=== PATIENT | female | born 1970 | race Caucasian/White ===

== ENCOUNTER 2018-08-04 20:03 | Emergency (ER) | payer MEDICAID ==
--- NOTE | 2018-08-04 20:36 | Emergency Department Report ---
Blank Doc - Documentation Documentation: C/O Cough and vomiting daily sweats and thrush. Hx/o HIV HTN, Hyst, This initial assessment diagnostic orders/clinical plan/treatment (s) is/Are subject change based on patient's health status, clinical progression and re- assessment by fellow clinical providers in the ED. Further treatment and work-up at subsequent clinical providers discretion. Patient/guardians urged not to elope from s their condition may be serious if not clinically assessed and managed. Inital order include:
[2018-08-04 21:13] LABS: Hematocrit 36.2 % (30.3-42.9); Hemoglobin 12.3 gm/dl (10.1-14.3); Mean Corpuscular HGB Conc 34 % (30-34); Mean Corpuscular Volume 83 fl (79-97); Platelet Count 293 K/mm3 (140-440); Red Blood Count 4.36 M/mm3 (3.65-5.03); Red Cell Distribution Width 12.3 % (13.2-15.2)
--- NOTE | 2018-08-04 21:20 | XRay Report ---
FINAL REPORT PROCEDURE: XR CHEST ROUTINE 2V TECHNIQUE: PA and lateral chest radiographs were obtained. CPT 76078 HISTORY: Cough COMPARISON: No prior studies are available for comparison. FINDINGS: Heart: Normal. Mediastinum/Vessels: Normal. Lungs/Pleural space: Normal. Bony thorax: No acute osseous abnormality. Other: IMPRESSION: Normal examination.
[2018-08-04 21:26] LABS: Alanine Aminotransferase 13 units/L (7-56); Albumin 3.9 g/dL (3.9-5); BUN/Creatinine Ratio 13; Blood Urea Nitrogen 12 mg/dL (7-17); Calcium 9.1 mg/dL (8.4-10.2); Hemolysis Index 53
[2018-08-04] MEDS ORDERED: NACL 0.9% 500 ML 500 ML IV ONE (21:31)
[2018-08-04 22:05] LABS: INR 1.12 (0.87-1.13)
[2018-08-04 22:13] LABS: Basophils % (Manual) 0 % (0.0-1.8); Total Cells Counted 100
[2018-08-04 22:14] LABS: Ovalocytes Few
[2018-08-04] MEDS ORDERED: ATROVENT IH ONE (22:15)
[2018-08-04] MEDS ORDERED: PROVENTIL IH ONE (22:15)
[2018-08-04] MEDS ORDERED: NACL 0.9% 1000 ML 1,000 ML IV ONE (22:30)
[2018-08-04] MEDS ORDERED: NACL 0.9% 1000 ML 1,000 ML ONE (22:37)
[2018-08-04 22:59] VITALS: BP 143/98
--- NOTE | 2018-08-05 00:01 | Emergency Department Report ---
- General Chief Complaint: Upper Respiratory Infection Stated Complaint: COUGH/EMESIS Time Seen by Provider: 08/04/18 20:31 Source: patient Mode of arrival: Ambulatory Limitations: No Limitations - History of Present Illness Initial Comments: 48-year-old female with history of HIV, not currently on antiretrovirals, presents to the ED with 4 day history of fever, cough, runny nose nausea, headache. Patient also states she noticed a thrush on her tongue, however is not currently present. MD Complaint: fever, cough, rhinorrhea -: days(s) (4) Severity: moderate Consistency: constant Improves With: nothing Worsens With: nothing Associated Symptoms: fever, chills, headache, rhinorrhea, cough, nausea. d enies: shortness of breath - Related Data Previous Rx's Medication Instructions Recorded Last Taken Type ALBUTEROL Inhaler(NF) [VENTOLIN 1 puff IH Q4HR PRN #1 inha 08/05/18 Unknown Rx Inhaler(NF)] Benzonatate [Tessalon Perles] 100 mg PO Q8HR PRN #20 capsule 08/05/18 Unknown Rx Naproxen [Naprosyn] 500 mg PO BID #20 tablet 08/05/18 Unknown Rx Ondansetron [Zofran Odt] 4 mg PO Q8HR PRN #20 tab.rapdis 08/05/18 Unknown Rx Allergies Allergy/AdvReac Type Severity Reaction Status Date / Time No Known Allergies Allergy Unverified 08/04/18 20:06 ED Review of Systems ROS: Stated complaint: COUGH/EMESIS Other details as noted in HPI Comment: All other systems reviewed and negative Constitutional: chills, fever ENT: congestion Respiratory: cough. denies: shortness of breath Cardiovascular: denies: chest pain Gastrointestinal: nausea. denies: abdominal pain Musculoskeletal: myalgia Neurological: headache ED Past Medical Hx - Past Medical History Hx Hypertension: Yes Hx HIV: Yes - Surgical History Additional Surgical History: hysterectomy - Social History Smoking Status: Current Every Day Smoker Substance Use Type: None - Medications Home Medications: Home Medications Medication Instructions Recorded Confirmed Last Taken Type ALBUTEROL Inhaler(NF) [VENTOLIN 1 puff IH Q4HR PRN #1 inha 08/05/18 Unknown Rx Inhaler(NF)] Benzonatate [Tessalon Perles] 100 mg PO Q8HR PRN #20 capsule 08/05/18 Unknown Rx Naproxen [Naprosyn] 500 mg PO BID #20 tablet 08/05/18 Unknown Rx Ondansetron [Zofran Odt] 4 mg PO Q8HR PRN #20 tab.rapdis 08/05/18 Unknown Rx ED Physical Exam - General Limitations: No Limitations General appearance: alert, in no apparent distress - Head Head exam: Present: atraumatic, normocephalic - Eye Eye exam: Present: normal appearance - ENT ENT exam: Present: mucous membranes moist, other (no thrush present on tongue) - Neck Neck exam: Present: normal inspection - Respiratory Respiratory exam: Present: wheezes. Absent: respiratory distress, rales - Cardiovascular Cardiovascular Exam: Present: normal rhythm, tachycardia - GI/Abdominal GI/Abdominal exam: Present: soft. Absent: distended - Extremities Exam Extremities exam: Present: normal inspection - Neurological Exam Neurological exam: Present: alert, oriented X3 - Psychiatric Psychiatric exam: Present: normal affect, normal mood - Skin Skin exam: Present: warm, dry, intact, normal color. Absent: rash ED Course Vital Signs 08/04/18 08/04/18 08/04/18 20:32 21:24 22:00 Temperature 100 F H 99.5 F Pulse Rate 116 H 109 H 96 H Pulse Rate [ Posterior Bilateral Throughout] Respiratory 22 20 31 H Rate Respiratory Rate [Posterior Bilateral Throughout] Blood Pressure 159/100 143/98 Blood Pressure 145/97 [Left] O2 Sat by Pulse 97 97 99 Oximetry 08/04/18 08/04/18 23:09 23:39 Temperature Pulse Rate Pulse Rate [ 90 110 H Posterior Bilateral Throughout] Respiratory Rate Respiratory 17 18 Rate [Posterior Bilateral Throughout] Blood Pressure Blood Pressure [Left] O2 Sat by Pulse Oximetry ED Medical Decision Making - Lab Data Result diagrams: 08/04/18 20:47 08/04/18 20:47 - EKG Data -: EKG Interpreted by [facility] EKG shows normal: sinus rhythm, axis, intervals, QRS complexes, ST-T waves Rate: normal - EKG Data Interpretation: no acute changes - Radiology Data Radiology results: report reviewed, image reviewed - Medical Decision Making 48-year-old female presents with flulike symptoms. Influenza testing negative. Chest x-ray negative. Lactic acid normal. Patient given IV fluids, nebulizer treatment. Feeling much better at this time. Advised outpatient follow-up. Return precautions given. Will discharge with prescriptions. - Differential Diagnosis URI, flu, pneumonia Critical care attestation.: If time is entered above; I have spent that time in minutes in the direct care of this critically ill patient, excluding procedure time. ED Disposition Clinical Impression: Upper respiratory infection Disposition: TO HOME OR SELFCARE Is pt being admited?: No Condition: Stable Instructions: Upper Respiratory Infection (ED) Prescriptions: ALBUTEROL Inhaler(NF) [VENTOLIN Inhaler(NF)] 1 puff IH Q4HR PRN #1 inha PRN Reason: Wheezing Benzonatate [Tessalon Perles] 100 mg PO Q8HR PRN #20 capsule PRN Reason: Cough Naproxen [Naprosyn] 500 mg PO BID #20 tablet Ondansetron [Zofran Odt] 4 mg PO Q8HR PRN #20 tab.rapdis PRN Reason: Vomiting Referrals: [facility] [Provider Group] - 3-5 Days Time of Disposition: 00:01
== END 2018-08-05 00:24 | disposition home or self-care (01) ==
LOC: ED 20:03
DX: J06.9 Acute upper respiratory infection, unspecified (principal); I10 Essential (primary) hypertension; F17.200 Nicotine dependence, unspecified, uncomplicated; Z90.710 Acquired absence of both cervix and uterus
CPT/HCPCS: 36415; 71046; 80053; 82140; 82805; 85007; 85025; 85610; 87040; 87400; 93005; 93010; 94640; 99284; J7030

== ENCOUNTER 2019-11-10 02:02 | Inpatient (IN) | payer MEDICAID ==
[2019-11-10 04:32] LABS: Hematocrit 40.2 % (30.3-42.9); Hemoglobin 13.7 gm/dl (10.1-14.3); Mean Corpuscular HGB Conc 34 % (30-34); Mean Corpuscular Volume 85 fl (79-97); Platelet Count 174 K/mm3 (140-440); Red Blood Count 4.72 M/mm3 (3.65-5.03); Red Cell Distribution Width 13.2 % (13.2-15.2)
[2019-11-10 04:40] LABS: INR 1.08 (0.87-1.13)
[2019-11-10 04:41] LABS: Partial Thromboplastin Time 29.9 Sec. (24.2-36.6)
[2019-11-10 04:54] LABS: BUN/Creatinine Ratio 14; Blood Urea Nitrogen 45 mg/dL (7-17); Calcium 9.1 mg/dL (8.4-10.2); Hemolysis Index 751
[2019-11-10 05:14] LABS: Alanine Aminotransferase TNR units/L (7-56)
[2019-11-10 05:17] LABS: Albumin TNR g/dL (3.9-5)
[2019-11-10 06:08] LABS: Albumin 2.9 g/dL (3.9-5)
[2019-11-10 07:28] LABS: Bacteria,Urine 2+ /HPF (Negative); Bilirubin,Urine NEG (Negative); Blood,Urine SM (Negative); Color,Urine Amber (Yellow); Granular Casts,Urine 14 /LPF; Mucus,Urine FEW /HPF; Urobilinogen,Urine < 2.0 mg/dL (<2.0)
[2019-11-10 08:26] LABS: Basophils % (Manual) 0 % (0.0-1.8); Total Cells Counted 100
[2019-11-10 08:27] LABS: Large Platelets Few; Platelet Estimate Consistent w Auto; RBC Morphology Normal
[2019-11-10 17:20] LABS: Creatinine,Urine 294.3 mg/dL (0.1-20.0)
[2019-11-11 06:15] LABS: Calcium 8.5 mg/dL (8.4-10.2)
[2019-11-12 13:11] LABS: Calcium 8.7 mg/dL (8.4-10.2)
[2019-11-13 07:08] LABS: Calcium 8.5 mg/dL (8.4-10.2)
[2019-11-15 05:33] LABS: Calcium 8.7 mg/dL (8.4-10.2)
[2019-11-15 15:44] VITALS: BP 145/89
[2019-11-17 20:34] LABS: HIV-1 RNA QN PCR 5.68 Log cps/mL
== END 2019-11-15 16:30 | disposition home health service (06) | DRG 602 ==
LOC: ED 02:02 → IMCU 07:58 → 3A 11-11 14:09
PROVIDERS: ADMIT Internal Medicine Geriatric Medicine; ATTEND Internal Medicine
DX: L03.116 Cellulitis of left lower limb (principal); N17.0 Acute kidney failure with tubular necrosis; E43 Unspecified severe protein-calorie malnutrition; L03.115 Cellulitis of right lower limb; E87.1 Hypo-osmolality and hyponatremia; R65.10 Systemic inflammatory response syndrome (SIRS) of non-infectious origin without acute organ dysfunction; I10 Essential (primary) hypertension; N30.01 Acute cystitis with hematuria; E87.2 Acidosis; F10.10 Alcohol abuse, uncomplicated; Y90.9 Presence of alcohol in blood, level not specified; Z20.828 Contact with and (suspected) exposure to other viral communicable diseases; D70.9 Neutropenia, unspecified; Z21 Asymptomatic human immunodeficiency virus [HIV] infection status; Z68.26 Body mass index [BMI] 26.0-26.9, adult; Z91.14 Patient's other noncompliance with medication regimen; Z90.710 Acquired absence of both cervix and uterus; Z82.49 Family history of ischemic heart disease and other diseases of the circulatory system
CPT/HCPCS: 36415; 71046; 76770; 80048; 80053; 80202; 81001; 82024; 82570; 83690; 84156; 84300; 84484; 85007; 85025; 85610; 85730; 86160; 86706; 86803; 87040; 87086; 87536; 87901; 93005; 93970; G0378; J0360; J0690; J0696; J1644; J2405; J3370; J7030; J7050; J7120

== ENCOUNTER 2019-12-12 10:50 | Outpatient (CLI) | payer MEDICAID ==
[2019-12-12] MEDS ORDERED: LIDOCAINE (4%) 40 MG/ML TOPICAL SOLN 50 ML BOTTLE TP ONE (12:00)
== END 2019-12-12 10:51 | disposition home or self-care (01) ==
LOC: WOUND 10:50
PROVIDERS: ATTEND Surgery
DX: L02.416 Cutaneous abscess of left lower limb (principal); I10 Essential (primary) hypertension; F17.210 Nicotine dependence, cigarettes, uncomplicated; Z90.710 Acquired absence of both cervix and uterus
CPT/HCPCS: 11042; G0463; 99204; 99214